=== PATIENT | male | born 1960 | race Caucasian/White ===

== ENCOUNTER 2016-10-26 13:46 | Outpatient (CLI) | payer SELFPAY ==
[2013-08-15 10:28] VITALS: BP 123/54
== END 2016-10-26 13:47 ==
LOC: CARD 13:46
PROVIDERS: ATTEND Internal Medicine Cardiovascular Disease
DX: R07.89 Other chest pain (principal); I10 Essential (primary) hypertension; F17.210 Nicotine dependence, cigarettes, uncomplicated
CPT/HCPCS: 99213

== ENCOUNTER 2016-11-16 14:23 | Outpatient (CLI) | payer SELFPAY ==
[2013-08-15 10:28] VITALS: BP 123/54
== END 2016-11-16 14:24 ==
LOC: CARD 14:23
PROVIDERS: ATTEND Internal Medicine Cardiovascular Disease
DX: I10 Essential (primary) hypertension (principal)
CPT/HCPCS: 99214

== ENCOUNTER 2018-06-26 15:24 | Outpatient (CLI) | payer SELFPAY ==
[2013-08-15 10:28] VITALS: BP 123/54
== END 2018-06-26 15:29 | disposition home or self-care (01) ==
LOC: LAB 15:24
PROVIDERS: ATTEND Family Medicine
DX: E03.9 Hypothyroidism, unspecified (principal)
CPT/HCPCS: 84443